=== PATIENT | female | born 1985 | race Caucasian/White ===

== ENCOUNTER 2022-01-29 12:26 | Emergency (ER) | payer BC, OTHER ==
[2022-01-29 13:02] VITALS: BP 130/52
== END 2022-01-29 16:21 | disposition home or self-care (01) ==
LOC: ER 12:26
DX: S90.121A Contusion of right lesser toe(s) without damage to nail, initial encounter (principal); V43.52XA Car driver injured in collision with other type car in traffic accident, initial encounter; Y93.89 Activity, other specified; Y92.488 Other paved roadways as the place of occurrence of the external cause; Y99.8 Other external cause status

== ENCOUNTER 2022-06-12 14:43 | Emergency (ER) | payer BC, OTHER ==
[~2022-06-12] VITALS: Ht 162.6 cm; Wt 106.0 kg
[2022-06-12 18:30] VITALS: BP 145/70
== END 2022-06-12 19:34 | disposition home or self-care (01) ==
LOC: ER 14:43
DX: M79.602 Pain in left arm (principal); M62.838 Other muscle spasm
CPT/HCPCS: 93005